=== PATIENT | male | born 1975 | race Two or more races ===

== ENCOUNTER 2016-10-20 13:28 | Emergency (ER) | payer OTHER ==
[~2016-10-20] VITALS: Ht 172.7 cm; Wt 94.8 kg
[2016-10-20 13:39] VITALS: BP 148/84
[2016-10-20 14:16] LABS: BILIRUBIN,URINE NEGATIVE (NEG); GLUCOSE,URINE NEGATIVE (NEG); NITRITE,URINE NEGATIVE (NEG); PH,URINE 7.5; PROTEIN,URINE NEGATIVE (NEG-TRACE); UROBILINOGEN,URINE 0.2 mg/dL (0.2 mg/dL)
[2016-10-20 14:39] LABS: BACTERIA,URINE 0 /HPF (0-FEW); RBC,URINE OCC /HPF (0-2); WBC,URINE 0 /HPF (0-4)
--- NOTE | 2016-10-20 15:26 | PHYS DOC ---
Past Medical History Past Medical History: No Pertinent History Past Surgical History: Other Additional Past Surgical Histo: LEFT SHOULDER ROTATOR CUFF REPAIR Alcohol Use: Occasionally Drug Use: Marijuana Adult General Chief Complaint Chief Complaint: ABDOMINAL PAIN HPI HPI Patient is a 41 year old male who presents with left groin pain for the past 3 or more weeks. He has a burning pain to his left inguinal area that sometimes shoots to his left testicle. States he was evaluated at [facility] for this prior and had a normal ultrasound. He was placed on NSAIDs. He has not followed up with anyone since that time, but has persistent symptoms. He denies nausea or vomiting, fever or chills, testicle swelling, scrotal swelling, constipation , diarrhea, dysuria, penile discharge, hematuria, back pain. He is taking ibuprofen or naproxen 1 time per day. Review of Systems Review of Systems Constitutional: Denies fever or chills [] Eyes: Denies change in visual acuity, redness, or eye pain [] HENT: Denies nasal congestion or sore throat [] Respiratory: Denies cough or shortness of breath [] Cardiovascular: No additional information not addressed in HPI [] GI: Denies abdominal pain, nausea, vomiting, bloody stools or diarrhea [] : Denies dysuria or hematuria [] Musculoskeletal: Denies back pain or joint pain [] Integument: Denies rash or skin lesions [] Neurologic: Denies headache, focal weakness or sensory changes [] Endocrine: Denies polyuria or polydipsia [] Current Medications Current Medications Current Medications Medications (Trade) Dose Ordered Sig/[facility] Start Time Stop Time Status Last Admin Dose Admin Naproxen (Naprosyn) 500 mg 1X ONCE 10/20/16 15:30 10/20/16 15:31 DC 10/20/16 15:33 500 MG Allergies Allergies Allergies Coded Allergies Type Severity Reaction Last Updated Verified No Known Drug Allergies 10/20/16 No Physical Exam Physical Exam Constitutional: Well developed, well nourished, no acute distress, non-toxic appearance. [] HENT: Normocephalic, atraumatic, bilateral external ears normal, oropharynx moist, nose normal. [] Eyes: PERRLA, EOMI. [] Neck: Normal range of motion, supple. [] Cardiovascular:Heart rate regular rhythm, no murmur [] Lungs & Thorax: Bilateral breath sounds clear to auscultation [] Abdomen: Bowel sounds normal, soft, no tenderness. [] Genitourinary: Normal external genitalia, no palpable inguinal hernia, normal palpable cord with appropriate tenderness, normal palpable bilateral testicles with appropriate tenderness, normal appearing scrotum, no palpable scrotal abnormalities Skin: Warm, dry, no erythema, no rash. [] Back: No tenderness, no CVA tenderness. [] Extremities: No tenderness, ROM intact, no edema. [] Neurologic: Alert and oriented X 3, normal motor function, normal sensory function, no focal deficits noted. [] Psychologic: Affect normal, judgement normal, mood normal. [] Current Patient Data Vital Signs Vital Signs Date Time Temp Pulse Resp B/P Pulse Ox O2 Delivery O2 Flow Rate FiO2 10/20/16 13:39 97.8 75 18 148/84 100 Room Air 97.8 Lab Values Laboratory Tests Test 10/20/16 13:30 Urine Collection Type Unknown Urine Color Yellow Urine Clarity Clear Urine pH 7.5 Urine Specific [place] 1.015 Urine Protein Negativemg/dL (NEG-TRACE) Urine Glucose (UA) Negativemg/dL (NEG) Urine Ketones (Stick) Negativemg/dL (NEG) Urine Blood Negative (NEG) Urine Nitrite Negative (NEG) Urine Bilirubin Negative (NEG) Urine Urobilinogen Dipstick 0.2mg/dL (0.2 mg/dL) Urine Leukocyte Esterase Negative (NEG) Urine RBC Occ/HPF (0-2) Urine WBC 0/HPF (0-4) Urine Bacteria 0/HPF (0-FEW) Urine Mucus Slight/LPF Course & Med Decision Making Course & Med Decision Making Pertinent Labs and Imaging studies reviewed. (See chart for details) Appears well on exam. Urine is unremarkable. Discussed possible etiologies of varicocele versus inguinal strain versus orchialgia versus other. Discussed use of NSAIDs and follow-up with primary care as well as urology clinic. Return precautions given. He understands and agrees with plan. Erik Disclaimer Erik Disclaimer This electronic medical record was generated, in whole or in part, using a voice recognition dictation system. Departure Departure Impression: Primary Impression: Left inguinal pain Disposition: HOME, SELF-CARE Condition: STABLE Patient Instructions: Inguinal Strain Additional Instructions: Take naproxen as needed for pain. Follow-up with your primary care doctor and urology clinic. Return for any concerns. Jonathan BROOKE MD Oct 20, 2016 15:26
[2016-10-20] MEDS ORDERED: NAPROXEN 500 MG TABLET PO ONE (15:30)
== END 2016-10-20 15:38 | disposition home or self-care (01) ==
LOC: ER 13:28
DX: R10.30 Lower abdominal pain, unspecified (principal); F12.10 Cannabis abuse, uncomplicated
CPT/HCPCS: 81001; 99283

== ENCOUNTER 2017-12-03 18:22 | Emergency (ER) | payer OTHER, MEDICARE ==
[2017-12-03 19:20] LABS: INFLUENZA A PATIENT NEGATIVE (NEGATIVE); INFLUENZA B PATIENT NEGATIVE (NEGATIVE); OBC FLU VALID
[2017-12-03] MEDS: DEXAMETHASONE SOD PHOS 20 MG/5 ML VIAL. IM (19:27)
[2017-12-03] MEDS: LIDOCAINE 2% VISCOUS 15 ML SOLUTION. SWSW (19:27)
[2017-12-03] MEDS: ACETAMINOPHEN 650 MG/20.3 ML SOLUTION. PO (19:27)
[2017-12-03] MEDS: IBUPROFEN 100 MG/5 ML ORAL.SUSP. PO (19:28)
[2017-12-03] MEDS: IV NORMAL SALINE 1000ML BAG 1,000 ML IV ×2 (19:45→20:19)
[2017-12-03 20:19] LABS: AGAP ISTAT 18 mmol/L (6-14); BUN ISTAT 11 mg/dL (8-26); CHLORIDE ISTAT 103 mmol/L (98-110); CREATININE ISTAT 0.9 mg/dL (0.5-1.4); GLUCOSE ISTAT 117 mg/dL (70-99); HEMATOCRIT ISTAT 49 % (37-52); HEMOGLOBIN ISTAT 16.7 g/dL (14-18); ION CA ISTAT 1.03 mmol/L (1.13-1.32); POTASSIUM ISTAT 3.4 mmol/L (3.5-5.0); SODIUM ISTAT 138 mmol/L (135-145); TOT CO2 ISTAT 21 mmol/L (23-32)
[2017-12-03 20:28] LABS: BASO % 0 % (0-3); EOS % 0 % (0-3); HEMATOCRIT 46.8 % (39.0-53.0); HEMOGLOBIN 16.2 g/dL (13.0-17.5); LYMPH % 5 % (24-48); MEAN CORPUSCULAR HEMOGLOBIN 33 pg (25-35); MEAN CORPUSCULAR HGB CONC 35 g/dL (31-37); MEAN CORPUSCULAR VOLUME 96 fL (79-100); MONO # 1.4 x10^3/uL (0.0-1.1); MONO % 7 % (0-9); NEUT # 18.5 x10^3uL (1.8-7.7); NEUT % 89 % (31-73); PLATELET COUNT 292 x10^3/uL (140-400); RED CELL DISTRIBUTION WIDTH 13.8 % (11.5-14.5); WHITE BLOOD COUNT 20.9 x10^3/uL (4.0-11.0)
[2017-12-03 20:29] LABS: ADD MAN DIFF? YES
[2017-12-03 20:43] LABS: ANION GAP 18 (6-14); BLOOD UREA NITROGEN 10 mg/dL (8-26); CALCIUM 9.2 mg/dL (8.5-10.1); CARBON DIOXIDE 20 mmol/L (21-32); CHLORIDE 100 mmol/L (98-107); GFR 81.2; GLUCOSE 115 mg/dL (70-99); POTASSIUM 3.4 mmol/L (3.5-5.1); SODIUM 138 mmol/L (136-145)
[2017-12-03 20:58] LABS: LACTIC ACID 1.8 mmol/L (0.4-2.0)
[2017-12-03 21:08] LABS: % LYMPHS 4 % (24-48); % MONOS 1 % (0-10); % SEGS 95 % (35-66)
[2017-12-03 21:09] LABS: PLT ESTIMATE ADEQUATE (ADEQUATE); STOMATOCYTES OCC
[2017-12-03 21:10] LABS: POLYCHROMASIA SLIGHT
[2017-12-03 21:21] LABS: PROCALCITONIN < 0.10 ng/mL (0.00-0.10)
[2017-12-03] MEDS ORDERED: CONTRAST GIVEN MC (21:30)
[2017-12-03] MEDS: IOHEXOL 300 MG/ML 100ML VIAL. IV (21:30)
[2017-12-03] MEDS: PIPERACILLIN/TAZOBACTAM 3.375 GM in IV NORMAL SALINE 50ML 50 ML IV (23:51)
[2017-12-04 05:59] LABS: NEGATIVE OBC STREP NEG; POSITIVE OBC STREP POS
== END 2017-12-04 00:37 | disposition short-term general hospital (02) ==
LOC: ER 12-04 00:37
DX: J04.30 Supraglottitis, unspecified, without obstruction (principal); R13.10 Dysphagia, unspecified; F12.10 Cannabis abuse, uncomplicated
CPT/HCPCS: 36415; 70360; 70491; 80047; 80048; 83605; 84145; 85007; 85025; 87040; 87070; 87804; 87804-59; 87880; 96361; 96365; 96372; 99285-25; J1100; J2543; J7030

== ENCOUNTER 2021-10-29 10:47 | Emergency (ER) | payer OTHER, MEDICAID ==
[~2021-10-29] VITALS: Ht 170.2 cm; Wt 88.3 kg
[2021-10-29] MEDS ORDERED: traMADol 50 MG TABLET PO ONE (11:30)
--- NOTE | 2021-10-29 12:04 | PHYS DOC ---
Past Medical History Past Medical History: Alcoholism, Vascular Disease (BELINDA SHAW) Past Surgical History: Other Additional Past Surgical Histo: left rotator cuff x2, carpal tunnel release, hernia repair (BELINDA SHAW) Smoking Status: Current Every Day Smoker Additional Information: 1 ppd Alcohol Use: Heavy Additional Information: drinks 24 beers daily Drug Use: Marijuana (BELINDA SHAW) General Adult EDM: Chief Complaint: FOOT INJURY PAIN HPI: HPI: Patient is a 46 year old male who presents with bilateral foot pain. Patient states that last night, his son and a friend were rough housing. When he attempted to separate the two, both of his feet got stepped on. He now reports severe right foot pain extending from the lateral ankle distally to all digits and mild distal left foot pain. Patient reports associated blue/purple color change and "tingling," but denies swelling, abrasion, laceration and puncture wounds. He is a PPD smoker, drinks 24 beers daily and has known history of peripheral vascular disease. Patient's last ultrasound did not reveal any lower extremity blockages. (BELINDA SHAW) Review of Systems: Review of Systems: ROS negative or noncontributory except as mentioned in HPI. (BELINDA SHAW) Heart Score: C/O Chest Pain: No (BELINDA SHAW) Current Medications: Current Medications Medications (Trade) Dose Ordered Sig/[facility] Start Time Stop Time Status Last Admin Dose Admin Tramadol HCl (Ultram) 50 mg 1X ONCE 10/29/21 11:30 10/29/21 11:41 DC (BELINDA SHAW) Allergies: Allergies: Allergies Coded Allergies Type Severity Reaction Last Updated Verified No Known Drug Allergies 10/20/16 No (BELINDA SHAW) Physical Exam: PE: Constitutional: Well developed, well nourished, no acute distress, patient appears older than stated age, disheveled. HENT: Normocephalic, atraumatic, bilateral external ears normal, nose normal. Eyes: EOMI, conjunctiva normal, no discharge. Neck: Normal range of motion, no stridor. Skin: Significant callus formation to the bilateral soles of the feet with varicose veins extending upward toward mid calf, bilateral distal feet symmetrically cool to touch. Skin otherwise warm, dry, no erythema, no rash. Extremities: Right upper extremity contracture, not new. Right strapping machine tender to gentle palpation from lateral ankle extending medially to midfoot and distally across all digits, DP/PT pulses 2+ and symmetrical, toes are purpleish in color (no significant change from baseline), no obvious deformity, no edema or swelling, pedal dorsiflexion and plantar flexion intact. Right calf with tenderness. Neurologic: Alert and oriented x4, no focal deficits noted. (BELINDA SHAW) Current Patient Data: Vital Signs: Vital Signs Date Time Temp Pulse Resp B/P (MAP) Pulse Ox O2 Delivery O2 Flow Rate FiO2 10/29/21 14:00 93 18 138/84 (102) 98 Room Air 10/29/21 11:49 16 10/29/21 11:10 98.1 104 20 135/94 (108) 98 Room Air 98.1 (BELINDA SHAW) Radiology/Procedures: Radiology/Procedures: PROCEDURE: FOOT RIGHT 3V EXAM: Right foot, 3 views. HISTORY: Blunt trauma. COMPARISON: None. FINDINGS: 3 views of the right foot are obtained. There is mild first metatarsal phalangeal joint spurring. There is no fracture, dislocation or subluxation. There is mild tibiotalar joint spurring. IMPRESSION: 1. 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 2. No acute osseous finding. Electronically signed by: Frida Nolan MD (10/29/2021 12:01 PM) [facility] (BELINDA HSAW) Course & Med Decision Making: Course & Med Decision Making Pertinent Labs and Imaging studies reviewed. (See chart for details) Patient is a 46-year-old male who presents with bilateral foot pain, right greater than left. It was stepped on by his adult states child. Patient does have history of peripheral vascular disease, but states that his feet appear to be darker. Distal pulses are symmetrical and sensation is intact. There does not appear to be any significant swelling or pallor. Plain films of right foot as well as venous US of RLE ordered. Tramadol provided for pain. (BELINDA SHAW) Course & Med Decision Making I saw and examined this patient myself. The patient had reported mild crush injury to his right foot. He reported calf pain and right foot pain. I examined him, he does have evidence of peripheral vascular disease. He does have a palpable dorsalis pedis pulse and posterior tibial pulse of the right foot. Right calf is tender. There is no evidence of pitting edema. Cap refill is approximately 2 seconds. Vascular exam is symmetric in bilateral lower extremities. The patient has a history of heavy tobacco use as well as alcohol use. He does not appear to be clinically intoxicated at this time. He is overall well-appearing. Imaging studies are unremarkable. Please see the PA note for further details of disposition. I concur with the plan of care. Smoking cessation encouraged. (ANITA CHRISTINE DO) Dragon Disclaimer: Dragelaine Disclaimer: This electronic medical record was generated, in whole or in part, using a voice recognition dictation system. (BELINDA SHAW) Departure Departure Impression: Primary Impression: Contusion of foot including toes Qualified Codes: S90.30XA - Contusion of unspecified foot, initial encounter; S90.129A - Contusion of unspecified lesser toe(s) without damage to nail, initial encounter Additional Impressions: Peripheral vascular disease Tobacco use Alcohol consumption heavy Disposition: HOME / SELF CARE / HOMELESS Condition: STABLE Referrals: NO PCP (PCP) AARON ALVAREZ ZHIPENG DPM Patient Instructions: Chronic Alcoholism, RICE - Routine Care for Injuries, [id number], Smoking Cessation, Tips For Success, Smoking, You Can Quit, [id number] Additional Instructions: EMERGENCY DEPARTMENT GENERAL DISCHARGE INSTRUCTIONS Thank you for coming to [facility] Emergency Department (ED) today and trusting us with you care. We trust that you had a positive experience in our Emergency Department. If you wish to speak to the department management, you may call the director at . YOUR FOLLOW UP INSTRUCTIONS ARE FOLLOWS: 1. Follow up with your primary care doctor. If you do not have a primary doctor, please ask for a resource list of physicians or clinics that may be able to assist you with follow up care. 2. The emergency provider has interpreted your imaging studies, if any were ordered. The radiology campaign management specialist also reviewed them. If there is a change in the findings, you will be notified in 48 hours when at all possible. 3. If a lab test or culture has been done, your results will be reviewed and you will be notified if you need a change in treatment. 4. Follow instructions verbalized to you and refer to the printouts if needed. ADDITIONAL INSTRUCTIONS AND INFORMATION: 1. Your care today has been supervised by a physician who is specially trained in emergency care. Many problems require more than one evaluation for a complete diagnosis and treatment. We recommend that you schedule your follow up appointment as recommended to ensure complete treatment of you illness or injury. If you are unable to obtain follow up care and continue to have a problem, or if your condition worsens, we recommend that you return to the ED. 2. We are not able to safely determine your condition over the phone nor are we able to give sound medical advice over the phone. For these safety reasons, if you call for medical advice we will ask you to come to the ED for further evaluation. 3. If you have any questions regarding these discharge instructions please call the ED at . SAFETY INFORMATION: In the interest of safety, wellness, and injury prevention; we encourage you to wear your seat belt, if you smoke; quite smoking, and we encourage family to use a protective helmet for bicycling and other sporting events that present an increased risk for head injury. IF YOUR SYMPTOMS WORSEN OR NEW SYMPTOMS DEVELOP, OR YOU HAVE CONCERNS ABOUT YOUR CONDITION; OR IF YOUR CONDITION WORSENS WHILE YOU ARE WAITING FOR YOUR FOLLOW UP APPOINTMENT; EITHER CONTACT YOUR PRIMARY CARE DOCTOR, THE PHYSICIAN WHOSE NAME AND NUMBER YOU WERE GIVEN, OR RETURN TO THE ED IMMEDIATELY. BELINDA SHAW Oct 29, 2021 12:04 ANITA CHRISTINE DO Oct 29, 2021 17:08
--- NOTE | 2021-10-29 13:12 | RAD ---
EXAM: Right lower extremity venous Doppler sonogram. HISTORY: Pain and swelling. TECHNIQUE: Mcallister scale and color Doppler sonographic evaluation of the right lower extremity veins wit h spectral waveform analysis was performed. FINDINGS: There is normal color flow, normal compressibility and there are normal spectral waveforms in the common femoral, superficial femoral, popliteal, posterior tibial and greater saphenous veins. IMPRESSION: No Doppler evidence of lower extremity deep venous thrombosis. Electronically signed by: Frida Nolan MD (10/29/2021 1:09 PM) [facility]
[2021-10-29 14:00] VITALS: BP 138/84
== END 2021-10-29 14:10 | disposition home or self-care (01) ==
LOC: ER 10:47
DX: S90.32XA Contusion of left foot, initial encounter (principal); S90.31XA Contusion of right foot, initial encounter; I73.9 Peripheral vascular disease, unspecified; Z72.0 Tobacco use; F10.20 Alcohol dependence, uncomplicated; Y90.9 Presence of alcohol in blood, level not specified; W22.8XXA Striking against or struck by other objects, initial encounter; Y93.89 Activity, other specified; Y92.89 Other specified places as the place of occurrence of the external cause; Y99.8 Other external cause status
CPT/HCPCS: 73630; 93971; 99284-25

== ENCOUNTER 2021-11-02 03:29 | Emergency (ER) | payer OTHER, MEDICAID ==
[~2021-11-02] VITALS: Ht 170.2 cm; Wt 85.4 kg
[2021-11-02 06:00] VITALS: BP 149/89
--- NOTE | 2021-11-02 06:34 | RAD ---
EXAM: Frontal chest with 3 view left rib series. HISTORY: Trauma, left rib pain. COMPARISON: None. FINDINGS: There are no confluent infiltrates. There is no pneumothorax or pleural effusion. The heart is not enlarged. The left distal clavicle has been partially resected. Left glenohumeral osteoarthritis is mild. Super ior subluxation of the humeral head indicates rotator cuff arthropathy. There are no displaced left r ib fractures. IMPRESSION: 1. No displaced left rib fractures. Electronically signed by: Katelyn Pack MD (11/02/2021 6:31 AM) [id number]
--- NOTE | 2021-11-02 06:54 | PHYS DOC ---
Past Medical History Past Medical History: Alcoholism, Vascular Disease Past Surgical History: Other Additional Past Surgical Histo: L ROTATOR CUFF X2, CARPEL TUNNEL, HERNIA REPAIR X2 Smoking Status: Unknown if ever smoked Alcohol Use: None Drug Use: Marijuana General Adult EDM: Chief Complaint: RIB PAIN HPI: HPI: 46 yo M who denies any PMH presents to the ed with c/o left sided rib pain stating he fell while drinking alcohol saturday night and was seen in the ED for right foot pain. States he wasn't having any rib pain immediately after falling. Reports he fell and landed forward on a wooden chair. Denies any loss consciousness. Reports daily alcohol use. Review of Systems: Review of Systems: Constitutional: Denies fever or chills. [] Eyes: Denies change in visual acuity. [] HENT: Denies nasal congestion or sore throat. [] Respiratory: Denies cough or shortness of breath or hemoptysis Cardiovascular: Denies chest pain or edema. [] GI: Denies abdominal pain, nausea, vomiting, bloody stools or diarrhea. [] : Denies incontinence or saddle anesthesia Musculoskeletal: Denies midline back pain or joint pain. [] Integument: Denies rash or diaphoresis Neurologic: Denies headache, focal weakness or sensory changes. [] Endocrine: Denies polyuria or polydipsia. [] Lymphatic: Denies swollen glands. [] Psychiatric: Denies depression or anxiety. [] Heart Score: C/O Chest Pain: No Risk Factors: Risk Factors: DM, Current or recent (<one month) smoker, HTN, HLP, family history of CAD, obesity. Risk Scores: Score 0 - 3: 2.5% MACE over next 6 weeks - Discharge Home Score 4 - 6: 20.3% MACE over next 6 weeks - Admit for Clinical Observation Score 7 - 10: 72.7% MACE over next 6 weeks - Early Invasive Strategies Allergies: Allergies: Allergies Coded Allergies Type Severity Reaction Last Updated Verified No Known Drug Allergies 11/02/21 No Physical Exam: PE: Constitutional: Well developed, well nourished, no acute distress, non-toxic appearance. HENT: Normocephalic, atraumatic, Eyes: EOMI, conjunctiva normal, no discharge. Neck: Normal range of motion, supple, Cardiovascular: S1/2 present, regular rhythm Lungs & Thorax: Speaking in full sentences, bilateral equal chest rise, no tachypnea or increased work of breathing, left thoracic 7-10 rib pain in midaxillary line, no flail chest - no external signs of trauma Abdomen: soft, no tenderness, no rigidity or guarding Skin: Warm, dry, no erythema, no rash. [] Back: No tenderness, no CVA tenderness. [] Extremities: No tenderness, no cyanosis, no lower extremity edema Neurologic: Alert and oriented X 3, normal motor function, normal sensory function, no focal deficits noted. [] Psychologic: Affect normal, judgement normal, mood normal. [] Current Patient Data: Vital Signs: Vital Signs Date Time Temp Pulse Resp B/P (MAP) Pulse Ox O2 Delivery O2 Flow Rate FiO2 11/02/21 04:29 98.0 88 16 176/91 (119) 99 Room Air 98.0 EKG: EKG: [] Radiology/Procedures: Radiology/Procedures: IMAGING REPORT Signed PATIENT: JARETH SKELTON ACCOUNT: [id number] : 1975 LOCATION: ER AGE: 46 SEX: M EXAM STATUS: REG ER ORD. PHYSICIAN: COLIN CALDERON DO REASON: left rib pain, s/p blunt trauma PROCEDURE: RIBS LEFT AND PA CHEST EXAM: Frontal chest with 3 view left rib series. HISTORY: Trauma, left rib pain. COMPARISON: None. FINDINGS: There are no confluent infiltrates. There is no pneumothorax or pleural effusion. The heart is not enlarged. The left distal clavicle has been partially resected. Left glenohumeral osteoarthritis is mild. Superior subluxation of the humeral head indicates rotator cuff arthropathy. There are no displaced left rib fractures. IMPRESSION: 1. No displaced left rib fractures. Electronically signed by: Katelyn Pack MD (11/02/2021 6:31 AM) [id number] DICTATED and SIGNED BY: RACHAEL PACK MD DATE: 11/02/21 [id number] Course & Med Decision Making: Course & Med Decision Making Pertinent Labs and Imaging studies reviewed. (See chart for details) Concern for left rib pain, suspect contusion. X-ray imaging not c/w fracture. Physical exam with no external signs of injury. Patient denies any chest pain, shortness of breath or abdominal pain. Will recommend [id number] analgesia and lidocaine patches. Due to patient's alcohol history we will also prescribe multivitamin folic acid. Will discharge home with strict ED return precautions were given for worsening pain, chest pain or shortness of breath. Encouraged urgent outpatient follow-up with PMD for routine care. Life-threaten ing processes were considered but are low suspicion at this time, given history, physical exam and ED workup. Pt was educated on all prescription medications and adverse effects. All patient's questions were answered and pt was stable at time of discharge. Life/limb-threatening differential includes but is not limited to, intracranial hemorrhage, diffuse axonal injury, spinal cord syndrome, unstable cervical fracture or SCIWORA, fractures or joint dislocations, neurovascular injuries, organ injury or laceration, pneumothorax, pneumoperitoneum, pericardial tamponade, unstable pelvic fracture, compartment syndrome, flail chest or re spiratory distress, burn injury or asphyxiation I have spoken with the patient and/or caregivers. I explained the patient's co ndition, diagnoses and treatment plan based on the information available to me at this time. I have answered the patient and/or caregiver's questions and addressed any concerns. The patient and/or caregivers have a good understanding of patient's diagnosis, condition and treatment plan as can be expected at this point. Vital signs have been stable. Patient's condition is stable and appropriate for discharge from the emergency department. Patient will pursue further outpatient evaluation with primary care physician or other designated or consulting physician as outlined in the discharge instructions. The patient and/or caregivers are agreeable to this plan of care and follow-up instructions have been explained in detail. The patient and/or caregivers have received these instructions in written form and have expressed an understanding of the discharge instructions. The patient and/or caregivers are aware that any significant change of condition or worsening of symptoms should prompt immediate return to this or the closest emergency department or call to 911. Erik Disclaimer: Erik Disclaimer: This electronic medical record was generated, in whole or in part, using a voice recognition dictation system. Departure Departure Impression: Primary Impression: Rib pain on left side Additional Impressions: Contusion of rib on left side Alcohol abuse Disposition: HOME / SELF CARE / HOMELESS Condition: STABLE Referrals: NO PCP (PCP) Follow-up with your primary care physician in 24 to 48 hours OR FOLLOW UP WITH FAMILY MEDICINE: [address], [address] [place] [address] Patient Instructions: Alcohol Problems, Rib Contusion Additional Instructions: EMERGENCY DEPARTMENT GENERAL DISCHARGE INSTRUCTIONS Thank you for coming to [facility] Emergency Department (ED) today and trusting us with you care. We trust that you had a positive experience in our Emergency Department. If you wish to speak to the department management, you may call the Director at [phone]. YOUR FOLLOW UP INSTRUCTIONS ARE FOLLOWS: 1. Do you have a private Doctor? If you do not have a private doctor, please ask for a resource list of physicians or clinics that may be able to assist you with follow up care. 2. The Emergency Physicain has interpreted your x-rays. The X-Ray specialist will also review them. If there is a change in the findings, you will be notified in 48 h ours when at all possible. 3. A lab test or culture has been done, your results will be reviewed and you will be notified if you need a change in treatment. ADDITIONAL INSTRUCTIONS AND INFORMATION: 1. Your care today has been supervised by a physician who is specially trained in emergency care. Many problems require more than one evaluation for a complete diagnosis and treatment. We recommend that you schedule your follow up appointment as recommended to ensure complete treatment of you illness or injury. If you are unable to obtain follow up care and continue to have a problem, or if your condition worsens, we recommend that you return to the ED. 2. We are not able to safely determine your condition over the phone nor are we able to give sound medical advice over the phone. For these safety reasons, if you call for medical advice we will ask you to come to the ED for further evaluation. 3. If you have any questions regarding these discharge instructions please call the ED at [phone]. SAFETY INFORMATION: In the interest of safety, wellness, and injury prevention; we encourage you to wear your sealbelt, if you smoke; quite smoking, and we encourage family to use a protective helmet for bicycling and other sporting events that present an increased risk for head injury. IF YOUR SYMPTOMS WORSEN OR NEW SYMPTOMS DEVELOP, OR YOU HAVE CONCERNS ABOUT YOUR CONDITION; OR IF YOUR CONDITION WORSENS WHILE YOU ARE WAITING FOR YOUR FOLLOW UP APPOINTMENT; EITHER CONTACT YOUR PRIMARY CARE DOCTOR, THE PHYSICIAN WHOSE NAME AND NUMBER YOU WERE GIVEN, OR RETURN TO THE ED IMMEDIATELY. Scripts Multivitamin With Folic Acid (ONE DAILY MULTIVITAMIN TABLET) 400 Mcg Tablet 1 TAB PO DAILY for 30 Days, #30 TAB 0 Refills Prov: COLIN CALDERON DO 11/02/21 Lidocaine (Lidocaine PATCH ) 1 Each Adh..patch 1 EACH TP DAILY for FOR LOCAL PAIN for 5 Days, #5 PATCH REMOVE AFTER 12 HOURS Prov: COLIN CALDERON DO 11/02/21 COLIN CALDERON DO Nov 02, 2021 06:54
[2021-11-02] MEDS ORDERED: LIDO700A21 TP (07:18)
[2021-11-02] MEDS ORDERED: MULT400T3 PO (07:23)
== END 2021-11-02 07:42 | disposition home or self-care (01) ==
LOC: ER 03:29
DX: S20.212A Contusion of left front wall of thorax, initial encounter (principal); M79.671 Pain in right foot; W18.39XA Other fall on same level, initial encounter; Y93.89 Activity, other specified; Y92.89 Other specified places as the place of occurrence of the external cause; Y99.8 Other external cause status
CPT/HCPCS: 71101; 99283

== ENCOUNTER 2021-12-08 13:32 | Inpatient (IN) | payer OTHER, MEDICAID ==
[~2021-12-08] VITALS: Ht 172.7 cm; Wt 90.3 kg
[~2021-12-08 13:32] MED LIST: LIDO700A21 TP; MULT400T3 PO
[2021-12-08 14:15] VITALS: BP 126/92
[2021-12-08] MEDS ORDERED: oxyCODONE/APAP 5/325 1 TAB TABLET PO PRN (16:00)
[2021-12-08] MEDS: IV NORMAL SALINE 1000ML BAG 1,000 ML IV SCH (16:33)
[2021-12-08] MEDS: oxyCODONE/APAP 5/325 1 TAB TABLET PO PRN ×2 (16:37→20:54)
[2021-12-08] MEDS: NICOTINE 14MG PATCH. TD SCH (16:39)
[2021-12-08] MEDS ORDERED: IV NORMAL SALINE 1000ML BAG 1,000 ML IV SCH (17:30)
[2021-12-08] MEDS ORDERED: PIP/TAZO PER PHARMACY MC PRN (17:30)
[2021-12-08] MEDS: PIPERACILLIN/TAZOBACTAM 3.375 GM in IV NORMAL SALINE 50ML 50 ML IV SCH (17:35)
--- NOTE | 2021-12-08 17:47 | HP ---
DATE OF SERVICE: 12/08/2021 ADMIT DATE: 12/08/2021 CHIEF COMPLAINT: Right foot toe lesions. HISTORY OF PRESENT ILLNESS: The patient is a pleasant 46-year-old male who has 3 of his 5 toes on the right that appeared to be gangrenous. He was told yesterday to go to the hospital as a direct admit. They called me from the wound care clinic. We accepted him as an admit, however, he did not show up, he went home. Suddenly today, he showed up. He has now been admitted to the medical floor where he has got 3 toes that are quite gangrenous. They are malodorous. I suspect he is going to need amputations. PAST MEDICAL HISTORY: Benign. ALLERGIES: None. FAMILY HISTORY: Diabetes. 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 He does not drink, smoke or take drugs. MEDICATIONS: He is on lidocaine patch and multiple vitamins. REVIEW OF SYSTEMS: GENERAL: No history of weight change, weakness or fevers. SKIN: No bruising, hair changes or rashes. EYES: No blurred, double or loss of vision. NOSE AND THROAT: No history of nosebleeds, hoarseness or sore throat. HEART: No history of palpitations, chest pain or shortness of breath on exertion. LUNGS: Denies cough, hemoptysis, wheezing or shortness of breath. GASTROINTESTINAL: Denies changes in appetite, nausea, vomiting, diarrhea or constipation. GENITOURINARY: No history of frequency, urgency, hesitancy or nocturia. NEUROLOGIC: Denies history of numbness, tingling, tremor or weakness. PSYCHIATRIC: No history of panic, anxiety or depression. ENDOCRINE: No history of heat or cold intolerance, polyuria or polydipsia. EXTREMITIES: He complains of right foot pain. PHYSICAL EXAMINATION: VITALS: Within normal limits and are stable. GENERAL: No apparent distress. Alert and oriented. HEENT: Normal cephalic atraumatic, external auditory canals are patent. Eyes: Extraocular muscles are intact, pupils are equally round and reactive to light and accommodation. MUSCULOSKELETAL: Well developed, well nourished, good range of motion. ENDOCRINE: No thyromegaly was palpated. LYMPHATICS: No cervical chain or axillary nodes were noted. HEMATOPOIETIC: No bruising. NECK: Supple, no JVD, no thyromegaly was noted. LUNGS: Clear to auscultation in all lung andrews without rhonchi or wheezing. HEART: RRR, S1, S2 present. Peripheral pulses intact, no obvious murmurs were noted. ABDOMEN: Soft, nontender. Positive bowel sounds, no organomegaly, normal bowel sounds. EXTREMITIES: The right foot has gangrenous toes, the last 3 toes are gangrenous, please see the pictures. NEUROLOGIC: Normal speech, normal tone. A and O x 3, moves all extremities, no obvious focal deficits. PSYCHIATRIC: Normal affect, normal mood. Stable. SKIN: No ulcerations or rashes, good skin turgor, no jaundice. VASCULAR: Good capillary refill, neurovascular bundle appears to be intact. LABORATORY DATA: Pending. ASSESSMENT AND PLAN: Severe peripheral vascular disease with gangrenous toes. The patient has been admitted. We will consult vascular surgeon. Empiric IV antibiotics, home meds. Deep venous thrombosis prophylaxis. Full code. P.r.n. Percocet, IV fluids. AURORA/MESFIN DR: Aaron TID: [id number]
[2021-12-08 19:00] VITALS: BP 105/67
[2021-12-08 19:12] LABS: BASO # 0.1 x10^3/uL (0.0-0.2); BASO % 1 % (0-3); EOS # 0.2 x10^3/uL (0.0-0.7); EOS % 3 % (0-3); HEMATOCRIT 38.1 % (39.0-53.0); HEMOGLOBIN 12.5 g/dL (13.0-17.5); LYMPH # 1.8 x10^3/uL (1.0-4.8); LYMPH % 28 % (24-48); MEAN CORPUSCULAR HEMOGLOBIN 32 pg (25-35); MEAN CORPUSCULAR HGB CONC 33 g/dL (31-37); MEAN CORPUSCULAR VOLUME 97 fL (79-100); MONO # 0.7 x10^3/uL (0.0-1.1); MONO % 10 % (0-9); NEUT # 3.7 x10^3/uL (1.8-7.7); NEUT % 57 % (31-73); PLATELET COUNT 313 x10^3/uL (140-400); RED BLOOD COUNT 3.94 x10^6/uL (4.30-5.70); RED CELL DISTRIBUTION WIDTH 14.1 % (11.5-14.5); WHITE BLOOD COUNT 6.4 x10^3/uL (4.0-11.0)
[2021-12-08 19:13] LABS: GFR 79.8; POTASSIUM 3.5 mmol/L (3.5-5.1)
[2021-12-08 23:00] VITALS: BP 131/81
[2021-12-09] MEDS: PIPERACILLIN/TAZOBACTAM 3.375 GM in IV NORMAL SALINE 50ML 50 ML IV SCH ×5 (01:16→23:25)
[2021-12-09] MEDS: oxyCODONE/APAP 5/325 1 TAB TABLET PO PRN ×6 (01:20→23:33)
[2021-12-09 03:00] VITALS: BP 123/80
[2021-12-09] MEDS: IV NORMAL SALINE 1000ML BAG 1,000 ML IV SCH ×2 (06:08→17:18)
[2021-12-09 07:00] VITALS: BP 120/84
[2021-12-09 08:47] LABS: BASO % 1 % (0-3); EOS # 0.2 x10^3/uL (0.0-0.7); EOS % 4 % (0-3); HEMATOCRIT 38.7 % (39.0-53.0); HEMOGLOBIN 12.7 g/dL (13.0-17.5); LYMPH # 1.9 x10^3/uL (1.0-4.8); LYMPH % 34 % (24-48); MEAN CORPUSCULAR HEMOGLOBIN 32 pg (25-35); MEAN CORPUSCULAR HGB CONC 33 g/dL (31-37); MEAN CORPUSCULAR VOLUME 96 fL (79-100); MONO # 0.5 x10^3/uL (0.0-1.1); MONO % 10 % (0-9); NEUT % 52 % (31-73); PLATELET COUNT 305 x10^3/uL (140-400); RED BLOOD COUNT 4.02 x10^6/uL (4.30-5.70); RED CELL DISTRIBUTION WIDTH 14.9 % (11.5-14.5); WHITE BLOOD COUNT 5.7 x10^3/uL (4.0-11.0)
[2021-12-09] MEDS: NICOTINE 14MG PATCH. TD SCH (09:35)
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
[2021-12-09] MEDS: ASPIRIN CHEWABLE 81 MG TABLET. PO SCH (10:30)
[2021-12-09 11:27] VITALS: BP 144/95
--- NOTE | 2021-12-09 13:25 | RAD ---
EXAM: Right lower extremity arterial Doppler sonogram. HISTORY: Gangrene. Peripheral vascular disease. TECHNIQUE: Mcallister scale and color Doppler sonographic imaging of the right lower extremity arteries wit h spectral waveform analysis was performed. COMPARISON: None. FINDINGS: There are abnormal monophasic waveforms within the right posterior tibial and dorsalis pedi s arteries. There is an elevated peak systolic velocity within the mid right superficial femoral tony ry. The remainder the peak systolic velocities are within normal limits. There is no arterial occlusi on. IMPRESSION: 1. Elevated peak systolic velocity within the right mid superficial femoral artery due to mild stenos is. 2. Monophasic waveforms within the posterior tibial and dorsalis pedis arteries, consistent with hemo dynamically significantly proximal stenosis. 3. No evidence of arterial occlusion. Electronically signed by: Frida Nolan MD (12/09/2021 1:22 PM) [id number]
[2021-12-09 15:24] VITALS: BP 146/92
--- NOTE | 2021-12-09 16:31 | RAD ---
EXAM: Right foot, 2 views. HISTORY: Right forefoot gangrene. COMPARISON: 10/29/2021 FINDINGS: 2 views of the right foot are obtained. There is first metatarsal phalangeal joint space na rrowing with degenerative spurring and subchondral cyst formation. There is no acute fracture, disloc ation or subluxation. There is no convincing radiographic evidence of osteomyelitis. There is mild ti biotalar joint spurring. IMPRESSION: 1. 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 2. No convincing radiographic evidence of osteomyelitis. Electronically signed by: Frida Nolan MD (12/09/2021 4:29 PM) [facility]
[2021-12-09 19:25] VITALS: BP 139/100
[2021-12-09] MEDS: ATORVASTATIN CALCIUM 40 MG TABLET. PO SCH (20:35)
[2021-12-09] MEDS: HEPARIN for SUB-Q USE 5,000 UNIT/ML VIAL. SQ SCH (22:30)
[2021-12-10 03:44] VITALS: BP 99/68
[2021-12-10] MEDS: PIPERACILLIN/TAZOBACTAM 3.375 GM in IV NORMAL SALINE 50ML 50 ML IV SCH ×4 (05:09→23:40)
[2021-12-10] MEDS: HEPARIN for SUB-Q USE 5,000 UNIT/ML VIAL. SQ SCH ×3 (05:12→22:00)
[2021-12-10] MEDS: oxyCODONE/APAP 5/325 1 TAB TABLET PO PRN ×5 (05:16→23:38)
[2021-12-10 06:57] LABS: BASO % 1 % (0-3); EOS # 0.2 x10^3/uL (0.0-0.7); EOS % 4 % (0-3); HEMATOCRIT 39.1 % (39.0-53.0); HEMOGLOBIN 12.7 g/dL (13.0-17.5); LYMPH # 1.9 x10^3/uL (1.0-4.8); LYMPH % 38 % (24-48); MEAN CORPUSCULAR HEMOGLOBIN 32 pg (25-35); MEAN CORPUSCULAR HGB CONC 33 g/dL (31-37); MEAN CORPUSCULAR VOLUME 97 fL (79-100); MONO # 0.5 x10^3/uL (0.0-1.1); MONO % 10 % (0-9); NEUT # 2.4 x10^3/uL (1.8-7.7); NEUT % 47 % (31-73); PLATELET COUNT 316 x10^3/uL (140-400); RED BLOOD COUNT 4.04 x10^6/uL (4.30-5.70); RED CELL DISTRIBUTION WIDTH 14.3 % (11.5-14.5); WHITE BLOOD COUNT 5.1 x10^3/uL (4.0-11.0)
[2021-12-10 07:00] VITALS: BP 124/80
[2021-12-10] MEDS: NICOTINE 14MG PATCH. TD SCH (09:13)
[2021-12-10] MEDS: ASPIRIN CHEWABLE 81 MG TABLET. PO SCH (09:13)
[2021-12-10] MEDS: IV NORMAL SALINE 1000ML BAG 1,000 ML IV SCH (09:14)
[2021-12-10 11:00] VITALS: BP 130/81
[2021-12-10 14:52] VITALS: BP 138/91
[2021-12-10] MEDS: MORPHINE SULFATE 2 MG/ML INJ. IVP PRN ×2 (16:12→20:05)
--- NOTE | 2021-12-10 17:49 | PDOC ---
[facility] PROGRESS NOTE Date of Service DOS: Late entry from December 09 Chief Complaint Chief Complaint Severe peripheral vascular disease with gangrenous toes. The patient has been admitted. We will consult vascular surgeon. Empiric IV antibiotics, home meds. Deep venous thrombosis prophylaxis. Full code. P.r.n. Percocet, IV fluids. History of Present Illness History of Present Illness 12/09 Evaluate examined at bedside. Pain controlled. Interested in plan. Continue antibiotics. Vascular surgery consulted. Possible surgery this coming week Vitals/I&O Vitals/I&O: Vital Signs Date Time Temp Pulse Resp B/P (MAP) Pulse Ox O2 Delivery O2 Flow Rate FiO2 12/10/21 17:25 16 97 Room Air 12/10/21 14:52 97.9 73 138/91 (107) 97.9 I & O 12/09/21 12/09/21 12/10/21 15:00 23:00 07:00 Intake Total 480 ml Output Total 700 ml Balance -220 ml Physical Exam General: Alert, Oriented X3, No acute distress Heart: Regular rate Lungs: Clear Abdomen: Normal bowel sounds, Soft, No tenderness, No masses Extremities: Other (dry gangrene to right 3-5th digits with gangrene to the plantar aspect of the right great toe and lateral aspect of the right 2nd toe, malodorous, no drainage, no surrounding erythema, no fluctuance, palpable femoral/popliteal/DP/PT pulses b/l) Skin: Other (See extremity exam) Labs Labs: Laboratory Tests Test 12/10/21 05:55 12/10/21 12:46 White Blood Count 5.1 x10^3/uL (4.0-11.0) Red Blood Count 4.04 x10^6/uL (4.30-5.70) Hemoglobin 12.7 g/dL (13.0-17.5) Hematocrit 39.1 % (39.0-53.0) Mean Corpuscular Volume 97 fL (79-100) Mean Corpuscular Hemoglobin 32 pg (25-35) Mean Corpuscular Hemoglobin Concent 33 g/dL (31-37) Red Cell Distribution Width 14.3 % (11.5-14.5) Platelet Count 316 x10^3/uL (140-400) Neutrophils (%) (Auto) 47 % (31-73) Lymphocytes (%) (Auto) 38 % (24-48) Monocytes (%) (Auto) 10 % (0-9) Eosinophils (%) (Auto) 4 % (0-3) Basophils (%) (Auto) 1 % (0-3) Neutrophils # (Auto) 2.4 x10^3/uL (1.8-7.7) Lymphocytes # (Auto) 1.9 x10^3/uL (1.0-4.8) Monocytes # (Auto) 0.5 x10^3/uL (0.0-1.1) Eosinophils # (Auto) 0.2 x10^3/uL (0.0-0.7) Basophils # (Auto) 0.0 x10^3/uL (0.0-0.2) SARS-CoV-2 Antigen (Rapid) Negative (NEGATIVE) Comment Review of Relevant I have reviewed the following items brandi (where applicable) has been applied. Medications: Current Medications Medications (Trade) Dose Ordered Sig/Abdullahi Route PRN Reason Start Time Stop Time Status Last Admin Dose Admin Atorvastatin Calcium (Lipitor) 40 mg QHS PO 12/09/21 21:00 12/09/21 20:35 Heparin Sodium (Porcine) (Heparin Sodium) 5,000 unit Q8HRS SQ 12/09/21 22:00 12/10/21 14:00 Morphine Sulfate (Morphine Sulfate) 2 mg PRN Q2HR PRN IVP PAIN 12/10/21 16:00 12/10/21 16:12 Justifications for Admission Other Justification JALYN LAU MD Dec 10, 2021 17:49
--- NOTE | 2021-12-10 17:50 | PDOC ---
[facility] PROGRESS NOTE Date of Service DOS: DATE: 12/10/21 TIME: 17:49 Chief Complaint Chief Complaint Severe peripheral vascular disease with gangrenous toes. The patient has been admitted. We will consult vascular surgeon. Empiric IV antibiotics, home meds. Deep venous thrombosis prophylaxis. Full code. P.r.n. Percocet, IV fluids. History of Present Illness History of Present Illness 12/09 Evaluate examined at bedside. Pain controlled. Interested in plan. Continue antibiotics. Vascular surgery consulted. Possible surgery this coming week 12/10 Evaluated examined at bedside. Patient resting in bed. Planning for surgical intervention tomorrow. Please send cultures if possible. We will see patient again in the morning before surgery. N.p.o. midnight Vitals/I&O Vitals/I&O: Vital Signs Date Time Temp Pulse Resp B/P (MAP) Pulse Ox O2 Delivery O2 Flow Rate FiO2 12/10/21 17:25 16 97 Room Air 12/10/21 14:52 97.9 73 138/91 (107) 97.9 I & O 12/09/21 12/09/21 12/10/21 15:00 23:00 07:00 Intake Total 480 ml Output Total 700 ml Balance -220 ml Physical Exam General: Alert, Oriented X3, No acute distress Heart: Regular rate Lungs: Clear Abdomen: Normal bowel sounds, Soft, No tenderness, No masses Extremities: Other (dry gangrene to right 3-5th digits with gangrene to the plantar aspect of the right great toe and lateral aspect of the right 2nd toe, malodorous, no drainage, no surrounding erythema, no fluctuance, palpable femoral/popliteal/DP/PT pulses b/l) Skin: Other (See extremity exam) Labs Labs: Laboratory Tests Test 12/10/21 05:55 12/10/21 12:46 White Blood Count 5.1 x10^3/uL (4.0-11.0) Red Blood Count 4.04 x10^6/uL (4.30-5.70) Hemoglobin 12.7 g/dL (13.0-17.5) Hematocrit 39.1 % (39.0-53.0) Mean Corpuscular Volume 97 fL (79-100) Mean Corpuscular Hemoglobin 32 pg (25-35) Mean Corpuscular Hemoglobin Concent 33 g/dL (31-37) Red Cell Distribution Width 14.3 % (11.5-14.5) Platelet Count 316 x10^3/uL (140-400) Neutrophils (%) (Auto) 47 % (31-73) Lymphocytes (%) (Auto) 38 % (24-48) Monocytes (%) (Auto) 10 % (0-9) Eosinophils (%) (Auto) 4 % (0-3) Basophils (%) (Auto) 1 % (0-3) Neutrophils # (Auto) 2.4 x10^3/uL (1.8-7.7) Lymphocytes # (Auto) 1.9 x10^3/uL (1.0-4.8) Monocytes # (Auto) 0.5 x10^3/uL (0.0-1.1) Eosinophils # (Auto) 0.2 x10^3/uL (0.0-0.7) Basophils # (Auto) 0.0 x10^3/uL (0.0-0.2) SARS-CoV-2 Antigen (Rapid) Negative (NEGATIVE) Comment Review of Relevant I have reviewed the following items brandi (where applicable) has been applied. Medications: Current Medications Medications (Trade) Dose Ordered Sig/Abdullahi Route PRN Reason Start Time Stop Time Status Last Admin Dose Admin Atorvastatin Calcium (Lipitor) 40 mg QHS PO 12/09/21 21:00 12/09/21 20:35 Heparin Sodium (Porcine) (Heparin Sodium) 5,000 unit Q8HRS SQ 12/09/21 22:00 12/10/21 14:00 Morphine Sulfate (Morphine Sulfate) 2 mg PRN Q2HR PRN IVP PAIN 12/10/21 16:00 12/10/21 16:12 Justifications for Admission Other Justification JALYN LAU MD Dec 10, 2021 17:50
[2021-12-10 19:25] VITALS: BP 131/86
[2021-12-10] MEDS: LACTOBACILLUS RHAMNOSUS GG 1 CAPSULE. PO SCH (20:04)
[2021-12-10] MEDS: ATORVASTATIN CALCIUM 40 MG TABLET. PO SCH (20:04)
[2021-12-10 23:16] VITALS: BP 116/72
[2021-12-11] VITALS (12 sets, daily range): BP systolic 112–146; BP diastolic 66–95
[2021-12-11] MEDS: IV NORMAL SALINE 1000ML BAG 1,000 ML IV SCH ×3 (01:15→20:14)
[2021-12-11 04:45] LABS: BASO # 0.1 x10^3/uL (0.0-0.2); BASO % 1 % (0-3); EOS # 0.2 x10^3/uL (0.0-0.7); EOS % 4 % (0-3); HEMATOCRIT 36.9 % (39.0-53.0); HEMOGLOBIN 12.2 g/dL (13.0-17.5); LYMPH # 1.5 x10^3/uL (1.0-4.8); LYMPH % 35 % (24-48); MEAN CORPUSCULAR HEMOGLOBIN 32 pg (25-35); MEAN CORPUSCULAR HGB CONC 33 g/dL (31-37); MEAN CORPUSCULAR VOLUME 97 fL (79-100); MONO # 0.4 x10^3/uL (0.0-1.1); MONO % 10 % (0-9); NEUT # 2.1 x10^3/uL (1.8-7.7); NEUT % 49 % (31-73); PLATELET COUNT 285 x10^3/uL (140-400); RED BLOOD COUNT 3.82 x10^6/uL (4.30-5.70); RED CELL DISTRIBUTION WIDTH 14.6 % (11.5-14.5); WHITE BLOOD COUNT 4.3 x10^3/uL (4.0-11.0)
[2021-12-11] MEDS: HEPARIN for SUB-Q USE 5,000 UNIT/ML VIAL. SQ SCH ×3 (05:47→21:56)
[2021-12-11] MEDS: PIPERACILLIN/TAZOBACTAM 3.375 GM in IV NORMAL SALINE 50ML 50 ML IV SCH ×3 (05:59→17:15)
[2021-12-11] MEDS ORDERED: LIDOCAINE 2% 100 MG/5 ML SYRINGE. ONE ×2 (07:35→07:49)
[2021-12-11] MEDS ORDERED: LIDOCAINE 2% PF 5 ML VIAL. ONE (07:35)
--- NOTE | 2021-12-11 07:36 | PDOC ---
Provider Note Date of Service: DATE: 12/11/21 TIME: 07:33 Provider Note Provider Note Patient seen and examined in the preoperative area. He has gangrene of the right third through fifth digits that covers nearly the entire digit. He has partial gangrene of the plantar aspect of the right great toe and on the lateral aspect of the second toe. We will plan for amputation of the right third through fifth digits, with debridement of the right first and second digit and possible amputation of the right first and second digit. He has a palpable pulse at the DP and PT bilaterally. Risks, including the risk of bleeding, infection, delayed wound healing, need for further amputation, cardiopulmonary compromise, and were discussed in detail with the patient who understood and wished to proceed with surgery. Informed consent was obtained. Justicifation of Admission Dx: Justifications for Admission: Justification of Admission Dx: ESTEFANIA Mccann DO Dec 11, 2021 07:36
[2021-12-11] MEDS ORDERED: fentaNYL PF VIAL 100 MCG/2 ML VIAL ONE ×2 (07:48→09:25)
[2021-12-11] MEDS ORDERED: MIDAZOLAM HCL/PF 2 MG/2 ML VIAL. ONE (07:48)
[2021-12-11] MEDS: fentaNYL PF VIAL 100 MCG/2 ML VIAL IVP PRN ×4 (07:55→09:33)
[2021-12-11] MEDS ORDERED: PROCHLORPERAZINE 10 MG/2 ML VIAL. IVP PRN ×2 (08:15→10:45)
[2021-12-11] MEDS ORDERED: MIDAZOLAM HCL/PF 2 MG/2 ML VIAL. IV ONE (08:15)
[2021-12-11] MEDS ORDERED: IV RINGERS,LACTATED 1000ML 1,000 ML IV SCH ×2 (08:15→10:45)
[2021-12-11] MEDS ORDERED: MORPHINE SULFATE 2 MG/ML INJ. IVP PRN ×2 (08:15→10:45)
[2021-12-11] MEDS ORDERED: fentaNYL PF VIAL 100 MCG/2 ML VIAL IVP PRN ×3 (08:15→10:45)
[2021-12-11] MEDS ORDERED: LIDOCAINE 1% Multi-Dose 20 ML VIAL. ONE (08:31)
[2021-12-11] MEDS ORDERED: PROCHLORPERAZINE 10 MG/2 ML VIAL. ONE (09:25)
--- NOTE | 2021-12-11 09:25 | PDOC4 ---
Operative Note Operative Note Date of procedure: 12/11/2021 Preoperative diagnosis: Right foot first through fifth toe gangrene Postoperative diagnosis: Same Procedure: Right third through fifth toe amputation Right first and second toe debridement 0.5 x 0.5 cm Anesthesia: MAC local Primary surgeon: Karime Garvin DO Computing Consultant: None Specimens removed: Right third through fifth toe for disposal Estimated blood loss: 50 cc Indications: Mr. Ray is a 46-year-old male who had trauma to the right foot which subsequently developed forefoot gangrene. He presents today for amputation of the third through fifth toes and debridement with possible amputation of the first and f second toes on the right foot. Risk-benefit and alternatives to operative intervention were discussed in detail with the patient who understood and wished proceed with surgery. Informed consent was obtained. Description of procedure: After informed consent was obtained the patient was brought to the operating room placed in supine position on the table. Monitored anesthesia care was induced. A timeout was performed confirmed the correct patient positioning procedure allergies and antibiotics. The patient was prepped and draped in usual sterile fashion with the right lower extremity exposed. Sharp excisional debridement of the skin was undertaken of the right first and second toe. This was debrided to an area of 0.5 x 0.5 cm. I then focused on the third through fifth toe as the first and second toe had viable tissue underlying. The third through fifth toes were incised with a scalpel and the tissue was mobilized on the phalanges. The phalanges were divided with a bone cutter and were passed off the field for disposal. I then mobilized the tissue more proximally and divided any tendon sharply. A rongeur was used to take the bone back further. The wound was then thoroughly irrigated and hemostasis was achieved. The wound was then closed utilizing a 3-0 Vicryl in a running fashion and 3-0 nylon in a running fashion on the skin. The patient tolerated the procedure well was transferred to recovery area in stable condition. All sponge and needle counts reported as correct at the end the case. I was present scrubbed throughout the duration of the procedure. DO JONNA Beebe KARA M DO Dec 11, 2021 09:25
[2021-12-11] MEDS ORDERED: NALOXONE 0.4 MG/ML VIAL. IV PRN (09:30)
[2021-12-11] MEDS ORDERED: HYDROmorphone 2 MG/ML INJ. ONE (09:30)
[2021-12-11] MEDS ORDERED: 0.9 % SODIUM CHLORIDE 10 ML DISP.SYRIN. IV PRN (09:30)
[2021-12-11] MEDS: HYDROmorphone 2 MG/ML INJ. IVP PRN ×4 (09:43→10:17)
--- NOTE | 2021-12-11 10:06 | NUR ---
SW following. Discussed with RN, pt from home with family, room air, NPO, rapid COVID-19 negative. Pt having surgery today. RN advised no SW needs at this time. SW will continue to follow.
[2021-12-11] MEDS ORDERED: HYDROmorphone 2 MG/ML INJ. IVP PRN (10:45)
[2021-12-11] MEDS: oxyCODONE/APAP 5/325 1 TAB TABLET PO PRN ×3 (11:16→21:51)
[2021-12-11] MEDS: LACTOBACILLUS RHAMNOSUS GG 1 CAPSULE. PO SCH ×2 (11:31→20:12)
[2021-12-11] MEDS: ASPIRIN CHEWABLE 81 MG TABLET. PO SCH (11:31)
[2021-12-11] MEDS: NICOTINE 14MG PATCH. TD SCH (11:32)
[2021-12-11] MEDS: MORPHINE SULFATE 2 MG/ML INJ. IVP PRN ×2 (14:19→20:10)
[2021-12-11] MEDS: MULTIVITAMIN with MINERAL TABLET. PO SCH (17:13)
--- NOTE | 2021-12-11 19:49 | PDOC ---
[employer] PROGRESS NOTE Date of Service DOS: DATE: 12/11/21 TIME: 19:48 Chief Complaint Chief Complaint Severe peripheral vascular disease with gangrenous toes. The patient has been admitted. We will consult vascular surgeon. Empiric IV antibiotics, home meds. Deep venous thrombosis prophylaxis. Full code. P.r.n. Percocet, IV fluids. History of Present Illness History of Present Illness 12/09 Evaluate examined at bedside. Pain controlled. Interested in plan. Continue antibiotics. Vascular surgery consulted. Possible surgery this coming week 12/10 Evaluated examined at bedside. Patient resting in bed. Planning for surgical intervention tomorrow. Please send cultures if possible. We will see patient again in the morning before surgery. N.p.o. midnight 12/11 Patient evaluated examined at bedside H before and after surgery. After surgery she was bit lethargic. Pain was well controlled. Continue current plan. Vascular following. Continue antibiotics. discussed with bedside RN. Vitals/I&O Vitals/I&O: Vital Signs Date Time Temp Pulse Resp B/P (MAP) Pulse Ox O2 Delivery O2 Flow Rate FiO2 12/11/21 17:14 20 94 Room Air 12/11/21 15:00 82 142/75 (97) 12/11/21 10:45 97.8 97.8 12/11/21 09:33 10.0 I & O 12/10/21 12/10/21 12/11/21 15:00 23:00 07:00 Intake Total 180 ml 180 ml Output Total 200 ml 250 ml Balance -20 ml 180 ml -250 ml Physical Exam General: Alert, Oriented X3, No acute distress Heart: Regular rate Lungs: Clear Abdomen: Normal bowel sounds, Soft, No tenderness, No masses Extremities: Other (dry gangrene to right 3-5th digits with gangrene to the plantar aspect of the right great toe and lateral aspect of the right 2nd toe, malodorous, no drainage, no surrounding erythema, no fluctuance, palpable femoral/popliteal/DP/PT pulses b/l) Skin: Other (See extremity exam) Labs Labs: Laboratory Tests Test 12/11/21 04:00 White Blood Count 4.3 x10^3/uL (4.0-11.0) Red Blood Count 3.82 x10^6/uL (4.30-5.70) Hemoglobin 12.2 g/dL (13.0-17.5) Hematocrit 36.9 % (39.0-53.0) Mean Corpuscular Volume 97 fL (79-100) Mean Corpuscular Hemoglobin 32 pg (25-35) Mean Corpuscular Hemoglobin Concent 33 g/dL (31-37) Red Cell Distribution Width 14.6 % (11.5-14.5) Platelet Count 285 x10^3/uL (140-400) Neutrophils (%) (Auto) 49 % (31-73) Lymphocytes (%) (Auto) 35 % (24-48) Monocytes (%) (Auto) 10 % (0-9) Eosinophils (%) (Auto) 4 % (0-3) Basophils (%) (Auto) 1 % (0-3) Neutrophils # (Auto) 2.1 x10^3/uL (1.8-7.7) Lymphocytes # (Auto) 1.5 x10^3/uL (1.0-4.8) Monocytes # (Auto) 0.4 x10^3/uL (0.0-1.1) Eosinophils # (Auto) 0.2 x10^3/uL (0.0-0.7) Basophils # (Auto) 0.1 x10^3/uL (0.0-0.2) Comment Review of Relevant I have reviewed the following items brandi (where applicable) has been applied. Medications: Current Medications Medications (Trade) Dose Ordered Sig/Abdullahi Route PRN Reason Start Time Stop Time Status Last Admin Dose Admin Lactobacillus Rhamnosus (Culturelle) 1 cap BID PO 12/10/21 21:00 12/11/21 11:31 Cefazolin Sodium 1 gm/Sodium Chloride 250 ml @ 250 mls/hr 1X ONCE IRR 12/11/21 08:00 12/11/21 08:59 DC 12/11/21 08:23 Fentanyl Citrate (Fentanyl 2ml Vial) 50 mcg PRN Q5MIN PRN IVP MODERATE PAIN 4-6 12/11/21 08:15 12/11/21 20:00 12/11/21 09:33 Ringer's Solution 1,000 ml @ 30 mls/hr Q24H IV 12/11/21 08:15 12/11/21 20:14 12/11/21 08:12 Hydromorphone HCl (Dilaudid) 0.5 mg PRN Q10MIN PRN IVP SEVERE PAIN 7-10, 2nd CHOICE 12/11/21 08:15 12/11/21 20:00 12/11/21 10:17 Prochlorperazine Edisylate (Compazine) 5 mg PACU PRN PRN IVP NAUSEA, MRX1 12/11/21 08:15 12/11/21 20:00 12/11/21 09:27 Midazolam HCl (Versed) 2 mg 1X ONCE IV 12/11/21 08:15 12/11/21 08:16 DC 12/11/21 07:55 Lidocaine HCl (Lidocaine 1% 20ml Vial) 20 ml STK-MED ONCE .ROUTE 12/11/21 08:31 12/11/21 08:32 DC 12/11/21 08:43 Multivitamins (Thera M Plus) 1 tab DAILY PO 12/11/21 17:00 12/11/21 17:13 Justifications for Admission Other Justification JALYN LAU MD Dec 11, 2021 19:49
[2021-12-11] MEDS: ATORVASTATIN CALCIUM 40 MG TABLET. PO SCH (20:12)
[2021-12-12] MEDS: PIPERACILLIN/TAZOBACTAM 3.375 GM in IV NORMAL SALINE 50ML 50 ML IV SCH ×4 (00:11→17:10)
[2021-12-12] MEDS: MORPHINE SULFATE 2 MG/ML INJ. IVP PRN ×5 (00:19→22:00)
[2021-12-12] MEDS: oxyCODONE/APAP 5/325 1 TAB TABLET PO PRN ×4 (02:51→20:04)
[2021-12-12 03:00] VITALS: BP 132/84
[2021-12-12] MEDS: HEPARIN for SUB-Q USE 5,000 UNIT/ML VIAL. SQ SCH ×3 (06:05→22:05)
[2021-12-12 07:08] LABS: BASO % 0 % (0-3); EOS # 0.1 x10^3/uL (0.0-0.7); EOS % 2 % (0-3); LYMPH # 1.4 x10^3/uL (1.0-4.8); LYMPH % 25 % (24-48); MEAN CORPUSCULAR HEMOGLOBIN 32 pg (25-35); MEAN CORPUSCULAR HGB CONC 33 g/dL (31-37); MEAN CORPUSCULAR VOLUME 96 fL (79-100); MONO # 0.5 x10^3/uL (0.0-1.1); MONO % 10 % (0-9); NEUT # 3.4 x10^3/uL (1.8-7.7); NEUT % 63 % (31-73); PLATELET COUNT 287 x10^3/uL (140-400); RED BLOOD COUNT 3.75 x10^6/uL (4.30-5.70); RED CELL DISTRIBUTION WIDTH 14.2 % (11.5-14.5); WHITE BLOOD COUNT 5.5 x10^3/uL (4.0-11.0)
[2021-12-12 07:15] VITALS: BP 132/84
[2021-12-12] MEDS: NICOTINE 14MG PATCH. TD SCH (08:24)
[2021-12-12] MEDS: MULTIVITAMIN with MINERAL TABLET. PO SCH (08:24)
[2021-12-12] MEDS: ASPIRIN CHEWABLE 81 MG TABLET. PO SCH (08:24)
[2021-12-12] MEDS: LACTOBACILLUS RHAMNOSUS GG 1 CAPSULE. PO SCH ×2 (08:24→22:01)
[2021-12-12] MEDS: IV NORMAL SALINE 1000ML BAG 1,000 ML IV SCH (08:49)
--- NOTE | 2021-12-12 10:42 | PDOC ---
PROGRESS NOTES Date of Service DATE: 12/12/21 TIME: 10:38 Subjective Subjective Endorses pain in right foot. No acute events postoperatively. vitals stable Objective Objective Vital Signs Date Time Temp Pulse Resp B/P (MAP) Pulse Ox O2 Delivery O2 Flow Rate FiO2 12/12/21 09:26 97 Room Air 10.0 12/12/21 07:19 20 12/12/21 07:15 97.9 68 132/84 (100) 97.9 Intake and Output 12/12/21 07:00 Intake Total 1440 ml Output Total 3151 ml Balance -1711 ml Intake Oral 440 ml IV Total 1000 ml Output Urine Total 3100 ml Stool Total 1 ml Estimated Blood Loss 50 ml # Voids 1 Physical Exam Heart: Other (2+ palpable dp pulse on right.) Skin: Other (Right foot amputation site c/d/i with sutures in place without hematoma. Small superficial ulceration right second toe. No other visualized wounds on right foot.) Assessment Assessment POD 1 right 3-5th toe amps and debridement of second toe ulceration on right Recommend half shoe for forefoot offloading on right for ambulation from p hysical therapy Recommend PT evaluation in shoe if able to ambulate then may discharge Bandaid with antibiotic ointment to second toe ulceration Dry dressing to cover suture on right foot Ok to ambulate with non weight bearing to right forefoot. Comment Review of Relevant I have reviewed the following items brandi (where applicable) has been applied. Labs Laboratory Tests Test 12/10/21 12:46 12/11/21 04:00 12/12/21 05:27 SARS-CoV-2 Antigen (Rapid) Negative (NEGATIVE) White Blood Count 4.3 x10^3/uL (4.0-11.0) 5.5 x10^3/uL (4.0-11.0) Red Blood Count 3.82 x10^6/uL (4.30-5.70) 3.75 x10^6/uL (4.30-5.70) Hemoglobin 12.2 g/dL (13.0-17.5) 12.0 g/dL (13.0-17.5) Hematocrit 36.9 % (39.0-53.0) 36.0 % (39.0-53.0) Mean Corpuscular Volume 97 fL (79-100) 96 fL (79-100) Mean Corpuscular Hemoglobin 32 pg (25-35) 32 pg (25-35) Mean Corpuscular Hemoglobin Concent 33 g/dL (31-37) 33 g/dL (31-37) Red Cell Distribution Width 14.6 % (11.5-14.5) 14.2 % (11.5-14.5) Platelet Count 285 x10^3/uL (140-400) 287 x10^3/uL (140-400) Neutrophils (%) (Auto) 49 % (31-73) 63 % (31-73) Lymphocytes (%) (Auto) 35 % (24-48) 25 % (24-48) Monocytes (%) (Auto) 10 % (0-9) 10 % (0-9) Eosinophils (%) (Auto) 4 % (0-3) 2 % (0-3) Basophils (%) (Auto) 1 % (0-3) 0 % (0-3) Neutrophils # (Auto) 2.1 x10^3/uL (1.8-7.7) 3.4 x10^3/uL (1.8-7.7) Lymphocytes # (Auto) 1.5 x10^3/uL (1.0-4.8) 1.4 x10^3/uL (1.0-4.8) Monocytes # (Auto) 0.4 x10^3/uL (0.0-1.1) 0.5 x10^3/uL (0.0-1.1) Eosinophils # (Auto) 0.2 x10^3/uL (0.0-0.7) 0.1 x10^3/uL (0.0-0.7) Basophils # (Auto) 0.1 x10^3/uL (0.0-0.2) 0.0 x10^3/uL (0.0-0.2) Laboratory Tests Test 12/12/21 05:27 White Blood Count 5.5 x10^3/uL (4.0-11.0) Red Blood Count 3.75 x10^6/uL (4.30-5.70) Hemoglobin 12.0 g/dL (13.0-17.5) Hematocrit 36.0 % (39.0-53.0) Mean Corpuscular Volume 96 fL (79-100) Mean Corpuscular Hemoglobin 32 pg (25-35) Mean Corpuscular Hemoglobin Concent 33 g/dL (31-37) Red Cell Distribution Width 14.2 % (11.5-14.5) Platelet Count 287 x10^3/uL (140-400) Neutrophils (%) (Auto) 63 % (31-73) Lymphocytes (%) (Auto) 25 % (24-48) Monocytes (%) (Auto) 10 % (0-9) Eosinophils (%) (Auto) 2 % (0-3) Basophils (%) (Auto) 0 % (0-3) Neutrophils # (Auto) 3.4 x10^3/uL (1.8-7.7) Lymphocytes # (Auto) 1.4 x10^3/uL (1.0-4.8) Monocytes # (Auto) 0.5 x10^3/uL (0.0-1.1) Eosinophils # (Auto) 0.1 x10^3/uL (0.0-0.7) Basophils # (Auto) 0.0 x10^3/uL (0.0-0.2) Medications Current Medications Oxycodone/ Acetaminophen (Percocet 5/325) 1 tab PRN Q4HRS PRN PO MILD PAIN 1-3; Start 12/08/21 at 16:00 Oxycodone/ Acetaminophen (Percocet 5/325) 2 tab PRN Q4HRS PRN PO MODERATE PAIN, SEVERE PAIN Last administered on 12/12/21at 07:19; Start 12/08/21 at 16:00 Sodium Chloride 1,000 ml @ 75 mls/hr [id number] IV Last administered on 12/12/21at 08:49; Start 12/08/21 at 16:00 Nicotine (Nicoderm Cq 14mg) 1 patch DAILY TD Last administered on 12/12/21at 08:24; Start 12/08/21 at 17:00 Piperacillin Sod/ Tazobactam Sod (Zosyn Per Pharmacy) 1 each PRN DAILY PRN MC SEE COMMENTS; Start 12/08/21 at 17:30 Sodium Chloride 1,000 ml @ 75 mls/hr [id number] IV ; Start 12/08/21 at 17:30; Status UNV Piperacillin Sod/ Tazobactam Sod 3.375 gm/Sodium Chloride 50 ml @ 100 mls/hr Q6HRS IV Last administered on 12/12/21at 06:00; Start 12/08/21 at 18:00 Aspirin (Aspirin Chewable) 81 mg DAILYWBKFT PO Last administered on 12/12/21at 08:24; Start 12/09/21 at 10:30 Atorvastatin Calcium (Lipitor) 40 mg QHS PO Last administered on 12/11/21at 20:12; Start 12/09/21 at 21:00 Heparin Sodium (Porcine) (Heparin Sodium) 5,000 unit Q8HRS SQ Last administered on 12/12/21at 06:05; Start 12/09/21 at 22:00 Lactobacillus Rhamnosus (Culturelle) 1 cap BID PO Last administered on 12/12/21at 08:24; Start 12/10/21 at 21:00 Morphine Sulfate (Morphine Sulfate) 2 mg PRN Q2HR PRN IVP PAIN Last administered on 12/12/21at 08:54; Start 12/10/21 at 16:00 Cefazolin Sodium 1 gm/Sodium Chloride 250 ml @ 250 mls/hr 1X ONCE IRR Last administered on 12/11/21at 08:23; Start 12/11/21 at 08:00; Stop 12/11/21 at 08:59; Status DC Lidocaine HCl (Lidocaine Pf 2% Vial) 5 ml STK-MED ONCE .ROUTE ; Start 12/11/21 at 07:35; Stop 12/11/21 at 07:35; Status DC Lidocaine HCl (Lidocaine HCl 2% Abboject) 100 mg STK-MED ONCE .ROUTE ; Start 12/11/21 at 07:35; Stop 12/11/21 at 07:35; Status DC Midazolam HCl (Versed) 2 mg STK-MED ONCE .ROUTE ; Start 12/11/21 at 07:48; Stop 12/11/21 at 07:48; Status DC Fentanyl Citrate (Fentanyl 2ml Vial) 100 mcg STK-MED ONCE .ROUTE ; Start 12/11/21 at 07:48; Stop 12/11/21 at 07:48; Status DC Lidocaine HCl (Lidocaine HCl 2% Abboject) 100 mg STK-MED ONCE .ROUTE ; Start 12/11/21 at 07:49; Stop 12/11/21 at 07:49; Status DC Fentanyl Citrate (Fentanyl 2ml Vial) 25 mcg PRN Q5MIN PRN IVP MILD PAIN 1-3; Start 12/11/21 at 08:15; Stop 12/11/21 at 20:00; Status DC Fentanyl Citrate (Fentanyl 2ml Vial) 50 mcg PRN Q5MIN PRN IVP MODERATE PAIN 4-6 Last administered on 12/11/21at 09:33; Start 12/11/21 at 08:15; Stop 12/11/21 at 20:00; Status DC Morphine Sulfate (Morphine Sulfate) 1 mg PRN Q10MIN PRN IVP SEVERE PAIN 7-10; Start 12/11/21 at 08:15; Stop 12/11/21 at 20:00; Status DC Ringer's Solution 1,000 ml @ 30 mls/hr Q24H IV Last administered on 12/11/21at 08:12; Start 12/11/21 at 08:15; Stop 12/11/21 at 20:14; Status DC Hydromorphone HCl (Dilaudid) 0.5 mg PRN Q10MIN PRN IVP SEVERE PAIN 7-10, 2nd CHOICE Last administered on 12/11/21at 10:17; Start 12/11/21 at 08:15; Stop 12/11/21 at 20:00; Status DC Prochlorperazine Edisylate (Compazine) 5 mg PACU PRN PRN IVP NAUSEA, MRX1 Last administered on 12/11/21at 09:27; Start 12/11/21 at 08:15; Stop 12/11/21 at 20:00; Status DC Midazolam HCl (Versed) 2 mg 1X ONCE IV Last administered on 12/11/21at 07:55; Start 12/11/21 at 08:15; Stop 12/11/21 at 08:16; Status DC Lidocaine HCl (Lidocaine 1% 20ml Vial) 20 ml STK-MED ONCE .ROUTE Last administered on 12/11/21at 08:43; Start 12/11/21 at 08:31; Stop 12/11/21 at 08:32; Status DC Fentanyl Citrate (Fentanyl 2ml Vial) 100 mcg STK-MED ONCE .ROUTE ; Start 12/11/21 at 09:25; Stop 12/11/21 at 09:25; Status DC Prochlorperazine Edisylate (Compazine) 10 mg STK-MED ONCE .ROUTE ; Start 12/11/21 at 09:25; Stop 12/11/21 at 09:25; Status DC Sodium Chloride (Normal Saline Flush) 3 ml QSHIFT PRN IV AFTER MEDS AND BLOOD DRAWS; Start 12/11/21 at 09:30 Naloxone HCl (Narcan) 0.4 mg PRN Q2MIN PRN IV SEE INSTRUCTIONS; Start 12/11/21 at 09:30 Hydromorphone HCl (Dilaudid) 2 mg STK-MED ONCE .ROUTE ; Start 12/11/21 at 09:30; Stop 12/11/21 at 09:31; Status DC Fentanyl Citrate (Fentanyl 2ml Vial) 25 mcg PRN Q5MIN PRN IVP MILD PAIN 1-3; Start 12/11/21 at 10:45; Stop 12/12/21 at 10:44 Fentanyl Citrate (Fentanyl 2ml Vial) 50 mcg PRN Q5MIN PRN IVP MODERATE PAIN 4- 6; Start 12/11/21 at 10:45; Stop 12/12/21 at 10:44 Morphine Sulfate (Morphine Sulfate) 1 mg PRN Q10MIN PRN IVP SEVERE PAIN 7-10; Start 12/11/21 at 10:45; Stop 12/12/21 at 10:44 Ringer's Solution 1,000 ml @ 30 mls/hr Q24H IV ; Start 12/11/21 at 10:45; Stop 12/11/21 at 22:44; Status DC Hydromorphone HCl (Dilaudid) 0.5 mg PRN Q10MIN PRN IVP SEVERE PAIN 7-10, 2nd CHOICE; Start 12/11/21 at 10:45; Stop 12/12/21 at 10:44 Prochlorperazine Edisylate (Compazine) 5 mg PACU PRN PRN IVP NAUSEA, MRX1; Start 12/11/21 at 10:45; Stop 12/12/21 at 10:44 Multivitamins (Thera M Plus) 1 tab DAILY PO Last administered on 12/12/21at 08:24; Start 12/11/21 at 17:00 Active Scripts Active One Daily Multivitamin Tablet (Multivitamin With Folic Acid) 400 Mcg Tablet 1 Tab PO DAILY 30 Days Lidocaine PATCH (Lidocaine) 1 Each Adh..patch 1 Each TP DAILY 5 Days REMOVE AFTER 12 HOURS Vitals/I & O Vital Sign - Last 24 Hours 12/11/21 12/11/21 12/11/21 12/11/21 10:45 11:15 11:16 11:30 Temp 97.8 97.8 Pulse 81 71 91 Resp 20 20 B/P (MAP) 146/95 (112) 133/89 (104) 142/82 (102) Pulse Ox 98 98 O2 Delivery Room Air Room Air 12/11/21 12/11/21 12/11/21 12/11/21 11:45 11:50 12:00 12:30 Pulse 84 84 93 Resp 20 B/P (MAP) 122/74 (90) 121/76 (91) 122/66 (84) Pulse Ox 98 O2 Delivery Room Air 12/11/21 12/11/21 12/11/21 12/11/21 13:00 14:00 14:19 14:53 Pulse 69 86 Resp 2 19 B/P (MAP) 119/68 (85) 136/78 (97) Pulse Ox 93 93 O2 Delivery Room Air Room Air 12/11/21 12/11/21 12/11/21 12/11/21 15:00 17:14 19:00 20:00 Temp 98.3 98.3 Pulse 82 83 Resp 20 18 B/P (MAP) 142/75 (97) 134/85 (101) Pulse Ox 94 97 O2 Delivery Room Air Room Air Room Air 12/11/21 12/11/21 12/11/21 12/11/21 20:10 20:40 21:51 23:00 Temp 98.0 98.0 Pulse 72 Resp 20 20 20 18 B/P (MAP) 137/92 (107) Pulse Ox 92 O2 Delivery Room Air Room Air Room Air Room Air 12/12/21 12/12/21 12/12/21 12/12/21 00:19 00:50 02:51 03:00 Temp 97.6 97.6 Pulse 75 Resp 20 24 24 20 B/P (MAP) 132/84 (100) Pulse Ox 98 O2 Delivery Room Air Room Air Room Air Room Air 12/12/21 12/12/21 12/12/21 12/12/21 03:25 05:52 06:25 07:15 Temp 97.9 97.9 Pulse 68 Resp 20 20 22 20 B/P (MAP) 132/84 (100) Pulse Ox 97 O2 Delivery Room Air Room Air Room Air Room Air 12/12/21 12/12/21 12/12/21 12/12/21 07:19 08:00 08:26 08:54 Resp 20 Pulse Ox 97 97 O2 Delivery Room Air Room Air Room Air Room Air O2 Flow Rate 10.0 10.0 12/12/21 09:26 Pulse Ox 97 O2 Delivery Room Air O2 Flow Rate 10.0 Intake and Output 12/11/21 12/11/21 12/12/21 15:00 23:00 07:00 Intake Total 1240 ml 200 ml Output Total 1750 ml 1400 ml 1 ml Balance -510 ml -1200 ml -1 ml Justifications for Admission Other Justification GURINDER PATHAK MD Dec 12, 2021 10:42
[2021-12-12 11:05] VITALS: BP 117/76
[2021-12-12 14:53] VITALS: BP 143/85
--- NOTE | 2021-12-12 17:43 | PDOC ---
[employer] PROGRESS NOTE Date of Service DOS: DATE: 12/12/21 TIME: 17:42 Chief Complaint Chief Complaint Severe peripheral vascular disease with gangrenous toes. The patient has been admitted. We will consult vascular surgeon. Empiric IV antibiotics, home meds. Deep venous thrombosis prophylaxis. Full code. P.r.n. Percocet, IV fluids. History of Present Illness History of Present Illness 12/09 Evaluate examined at bedside. Pain controlled. Interested in plan. Continue antibiotics. Vascular surgery consulted. Possible surgery this coming week 12/10 Evaluated examined at bedside. Patient resting in bed. Planning for surgical intervention tomorrow. Please send cultures if possible. We will see patient again in the morning before surgery. N.p.o. midnight 12/11 Patient evaluated examined at bedside H before and after surgery. After surgery she was bit lethargic. Pain was well controlled. Continue current plan. Vascular following. Continue antibiotics. discussed with bedside RN. 12/12 Evaluated examined at bedside. He is doing well says pain controlled. No major complaints to me. PT OT ordered needs half shoe for his operative foot. Can discontinue antibiotics today. Discussed with bedside RN. Vitals/I&O Vitals/I&O: Vital Signs Date Time Temp Pulse Resp B/P (MAP) Pulse Ox O2 Delivery O2 Flow Rate FiO2 12/12/21 15:18 98 Room Air 10.0 12/12/21 14:53 98.1 61 18 143/85 (104) 98.1 I & O 12/11/21 12/11/21 12/12/21 15:00 23:00 07:00 Intake Total 1240 ml 200 ml Output Total 1750 ml 1400 ml 1 ml Balance -510 ml -1200 ml -1 ml Physical Exam General: Alert, Oriented X3, No acute distress Heart: Regular rate, Other (2+ palpable dp pulse on right.) Lungs: Clear Abdomen: Normal bowel sounds, Soft, No tenderness, No masses Extremities: Other (dry gangrene to right 3-5th digits with gangrene to the plantar aspect of the right great toe and lateral aspect of the right 2nd toe, malodorous, no drainage, no surrounding erythema, no fluctuance, palpable femoral/popliteal/DP/PT pulses b/l) Skin: Other (Right foot amputation site c/d/i with sutures in place without hematoma. Small superficial ulceration right second toe. No other visualized wounds on right foot.) Labs Labs: Laboratory Tests Test 12/12/21 05:27 White Blood Count 5.5 x10^3/uL (4.0-11.0) Red Blood Count 3.75 x10^6/uL (4.30-5.70) Hemoglobin 12.0 g/dL (13.0-17.5) Hematocrit 36.0 % (39.0-53.0) Mean Corpuscular Volume 96 fL (79-100) Mean Corpuscular Hemoglobin 32 pg (25-35) Mean Corpuscular Hemoglobin Concent 33 g/dL (31-37) Red Cell Distribution Width 14.2 % (11.5-14.5) Platelet Count 287 x10^3/uL (140-400) Neutrophils (%) (Auto) 63 % (31-73) Lymphocytes (%) (Auto) 25 % (24-48) Monocytes (%) (Auto) 10 % (0-9) Eosinophils (%) (Auto) 2 % (0-3) Basophils (%) (Auto) 0 % (0-3) Neutrophils # (Auto) 3.4 x10^3/uL (1.8-7.7) Lymphocytes # (Auto) 1.4 x10^3/uL (1.0-4.8) Monocytes # (Auto) 0.5 x10^3/uL (0.0-1.1) Eosinophils # (Auto) 0.1 x10^3/uL (0.0-0.7) Basophils # (Auto) 0.0 x10^3/uL (0.0-0.2) Comment Review of Relevant I have reviewed the following items brandi (where applicable) has been applied. Justifications for Admission Other Justification JALYN LAU MD Dec 12, 2021 17:43
[2021-12-12 19:20] VITALS: BP 143/82
[2021-12-12] MEDS: ATORVASTATIN CALCIUM 40 MG TABLET. PO SCH (22:01)
[2021-12-12 23:10] VITALS: BP 138/78
[2021-12-13] MEDS: oxyCODONE/APAP 5/325 1 TAB TABLET PO PRN ×3 (01:59→12:28)
[2021-12-13 02:28] VITALS: BP 129/74
[2021-12-13] MEDS: IV NORMAL SALINE 1000ML BAG 1,000 ML IV SCH (02:40)
[2021-12-13 05:01] LABS: BASO # 0.1 x10^3/uL (0.0-0.2); BASO % 1 % (0-3); EOS # 0.2 x10^3/uL (0.0-0.7); EOS % 4 % (0-3); HEMATOCRIT 38.1 % (39.0-53.0); HEMOGLOBIN 12.5 g/dL (13.0-17.5); LYMPH # 1.5 x10^3/uL (1.0-4.8); LYMPH % 26 % (24-48); MEAN CORPUSCULAR HEMOGLOBIN 31 pg (25-35); MEAN CORPUSCULAR HGB CONC 33 g/dL (31-37); MEAN CORPUSCULAR VOLUME 96 fL (79-100); MONO # 0.6 x10^3/uL (0.0-1.1); MONO % 10 % (0-9); NEUT # 3.4 x10^3/uL (1.8-7.7); NEUT % 60 % (31-73); PLATELET COUNT 285 x10^3/uL (140-400); RED BLOOD COUNT 3.98 x10^6/uL (4.30-5.70); RED CELL DISTRIBUTION WIDTH 14.7 % (11.5-14.5); WHITE BLOOD COUNT 5.7 x10^3/uL (4.0-11.0)
[2021-12-13] MEDS: HEPARIN for SUB-Q USE 5,000 UNIT/ML VIAL. SQ SCH (06:00)
[2021-12-13 07:15] VITALS: BP 121/71
[2021-12-13] MEDS: ASPIRIN CHEWABLE 81 MG TABLET. PO SCH (08:02)
[2021-12-13] MEDS: LACTOBACILLUS RHAMNOSUS GG 1 CAPSULE. PO SCH (08:02)
[2021-12-13] MEDS: MULTIVITAMIN with MINERAL TABLET. PO SCH (08:02)
[2021-12-13] MEDS: NICOTINE 14MG PATCH. TD SCH (09:00)
--- NOTE | 2021-12-13 09:06 | NUR ---
Wound Care Wound care follow up for post op assessment. Pt has had 3-5 toe amputation that was surgically closed, so no open wounds noted. Pt also has steri-strips on plantar great toe. Cleansed sutures with ChloraPrep and covered with Xeroform and gauze. Recommend daily dressing changes and HHRN to monitor for infection as great toe is somewhat reddened and swollen and foot is mildly swollen. WC will sign off at this time. Please reconsult if new wounds develop or surgical incision dehisces.
[2021-12-13 11:00] VITALS: BP 135/80
--- NOTE | 2021-12-13 11:56 | PDOC ---
Provider Note Date of Service: DATE: 12/13/21 TIME: 11:53 Provider Note Provider Note Vascular S: Patient is without complaints, would like to go home. Successfully ambulating with forefoot off-loading shoe. The patient is requesting for HH to assist with dressing changes. O: Awake and alert right foot dressing dry and intact, report that incision healing nicely and small open ulceration on second toe clean. A/P: POD 2 right 3-5th toe amps and debridement of second toe ulceration on right Recommend half shoe for forefoot offloading Bandaid with antibiotic ointment to second toe ulceration Dry dressing to cover suture on right foot Ok to discharge when medically stable follow up as scheduled with Dr. Garvin. Discussed postop instructions with the patient and his family, they express understanding. Justicifation of Admission Dx: Justifications for Admission: Justification of Admission Dx: ADAN Ramos APRN Dec 13, 2021 11:56
[2021-12-13] MEDS ORDERED: ATOR40TA59 PO (12:35)
[2021-12-13] MEDS ORDERED: ASPI-630 PO (12:35)
[2021-12-13] MEDS ORDERED: OXYC1TAB15 PO (12:35)
--- NOTE | 2021-12-13 12:39 | SNU/HH DC ---
DISCHARGE WITH HOME HEALTH DISCHARGE INFORMATION: Discharge Date: Dec 13, 2021 Condition on Discharge: Stable CODE STATUS: Code Status: Full HOME HEALTH: Face to Face: I certify this patient is under my care and that I, or a nurse practitioner or jacob leiva's medical assistant float working with me, had a face to face encounter that meets the physician face to face encounter requirements with this patient on []. RN For Eval/Treatment: Yes Physical Therapy For: Evalulation/Treatment Occupational Therapy For: Evaluation/Treatment Pt Meets Homebound Status: Poor coordination w/ amb., Extreme weakness w/ amb. POST DISCHARGE ORDERS: Activity Instructions for Disc: Activity as tolerated Weight Bearing Status after Di: As tolerated Bathing Instructions: Shower-keep dressing dry, No Tub Bath until see DIET AFTER DISCHARGE: ADA Wound/Incision Care: Keep wound/cast CDI, Change dressing, Other, see below Other wound/incision instructi: Change daily and as needed with xeroform and guaze. FOLLOW-UP: Follow Up With: Dr Garvin on January 01 at 1 pm at the [facility] TREATMENT/EQUIPMENT ORDERS: Adaptive Equipment Issued: Crutches CERTIFICATION STATEMENT: Certification Statement: Certification Statement: Based on the above finding, I certify that this patient is confined to the home and needs intermittent snf care, physical therapy and/or speech therapy, or continues to need occupational therapy.~ This patient is under my care, and I have initiated the establishment of the plan of care.~ This patient will be followed by myself or a community physician who will periodically review the plan of care. Home Meds Active Scripts Aspirin (ASPIRIN) 81 Mg Tab.chew, 81 MG PO DAILYWBKFT for cad for 60 Days, #60 TAB.CHEW Prov:JALYN LAU MD 12/13/21 Atorvastatin Calcium (ATORVASTATIN CALCIUM) 40 Mg Tablet, 40 MG PO QHS for hpld for 60 Days, #60 TAB Prov:JALYN LAU MD 12/13/21 Multivitamin With Folic Acid (ONE DAILY MULTIVITAMIN TABLET) 400 Mcg Tablet, 1 TAB PO DAILY for 30 Days, #30 TAB 0 Refills Prov:COLIN CALDERON DO 11/02/21 Lidocaine (Lidocaine PATCH ) 1 Each Adh..patch, 1 EACH TP DAILY for FOR LOCAL PAIN for 5 Days, #5 PATCH REMOVE AFTER 12 HOURS Prov:COLIN CALDERON DO 11/02/21 JALYN LAU MD Dec 13, 2021 12:39
--- NOTE | 2021-12-13 13:32 | NUR ---
SW following. Discussed with RN, discharge order for home with home health. [facility] RN notified of referral and meeting with pt and pt's family. Addendum: 12/13/21 at 1410 by ALLI BLUE Pt accepted with [facility].
--- NOTE | 2021-12-13 14:10 | NUR ---
Patient left around 1400 with his family. Discharge education completed by WC, vascular team, therapy, and this nurse prior to dismissal. Dressing CDI. to right foot with shoe in place. Family education completed. NO IV access on discharge. No concerns noted at discharge.
--- NOTE | 2021-12-13 17:07 | PATHOLOGY ---
[facility] Accession Number: [id number] . 01 Material submitted: . toe - RIGHT THIRD, FOURTH, FIFTH TOES. Modifiers: right, third, fourth . 01 Clinical history: . RIGHT GANGRENOUS FOREFOOT RIGHT 3, 4, 5 TOE AMPUTATION DEBRIDEMENT, POSS AMP 1, 2 TOES . 02 Diagnosis: Toes (3), right third, fourth, and fifth toe amputations: - Focal gangrenous necrosis and acute cellulitis of toes with focal acute osteomyelitis. (JPM:satish; 12/13/2021) S 12/13/2021 1607 Local . 02 Electronically signed: . Edgar Campos MD, Pathologist NPI- [id number] . 01 Gross description: . The specimen is received in formalin, labeled "Jeramie Ray, right third, fourth, fifth toes". Received are three amputated digits ranging in size from 3.3 x 2.8 x 2.0 to 3.6 x 2.1 x 2.0 cm in greatest dimensions. The bone margins are jagged in appearance. The bone and soft tissue margins are inked black, blue, and green, respectively. The epidermal surfaces are light brown to dusky brown-black and sloughing in appearance. Licensed P[facility] Nurse [facility] Nurse longitudinal cross-sections through each bone margin are submitted in cassettes A1 through A3, following decalcification. Gross photographs are taken. (CAA; 12/12/2021) QA/QA 12/12/2021 0936 Local . 02 Pathologist provided ICD-10: I96, M86.171, L03.031 . 02 CPT . 533037, [id number] Specimen Comment: A courtesy copy of this report has been sent to [phone], [phone] Specimen Comment: [id number] Specimen Comment: Report sent to / DR COYLE Performed at: [address] [id number] MD Jose Champion MD Phone: [phone] [facility] [address], [place] [id number] MD Edgar Campos MD Phone: [phone]
[2021-12-14] MEDS ORDERED: HYDR-3070 PO (15:50)
[2021-12-15] MEDS ORDERED: HYDR-2763 PO (10:24)
--- NOTE | 2021-12-15 12:21 | PDOC3 ---
[facility]-Discharge Summary Date of Admission: Date of Admission: Dec 08, 2021 Date of Discharge: Date of Discharge: Dec 13, 2021 Admission Diagnosis: Problems: (1) Gangrene Consults: Consults: Vascular Surgery Hospital Course: Hospital Course: Chief Complaint Severe peripheral vascular disease with gangrenous toes. The patient has been admitted. We will consult vascular surgeon. Empiric IV antibiotics, home meds. Deep venous thrombosis prophylaxis. Full code. P.r.n. Percocet, IV fluids. History of Present Illness History of Present Illness 12/09 Evaluate examined at bedside. Pain controlled. Interested in plan. Continue antibiotics. Vascular surgery consulted. Possible surgery this coming week 12/10 Evaluated examined at bedside. Patient resting in bed. Planning for surgical intervention tomorrow. Please send cultures if possible. We will see patient again in the morning before surgery. N.p.o. midnight 12/11 Patient evaluated examined at bedside H before and after surgery. After surgery she was bit lethargic. Pain was well controlled. Continue current plan. Vascular following. Continue antibiotics. discussed with bedside RN. 12/12 Evaluated examined at bedside. He is doing well says pain controlled. No major complaints to me. PT OT ordered needs half shoe for his operative foot. Can discontinue antibiotics today. Discussed with bedside RN. 12/13 Evaluate examined at bedside. Did well with therapy. Can discharge home with home health today. Greater than 30 minutes spent on discharge. Outpatient follow-up with vascular Disposition: Disposition/Orders: D/C to Home w/ HH Activity: Activity: Resume previous activity Diet: Diet: Cardiac Medications: Home Meds Active Scripts Hydrocodone/Acetaminophen (Hydrocodone-Acetamin 7.5-325) 1 Each Tablet, 1 EACH PO QIDPRN PRN for PAIN for 10 Days, #20 TAB Prov:CASTLE,NIAL K III DO 12/15/21 Hydrocodone Bit/Acetaminophen (HYDROCODONE-APAP 7.5-300) 1 Each Tablet, 1 TAB PO PRN TID PRN for PAIN MDD 3 Tablet(s) for 14 Days, #20 TAB 0 Refills Prov:CASTLE,NIAL K III DO 12/14/21 Aspirin (ASPIRIN) 81 Mg Tab.chew, 81 MG PO DAILYWBKFT for cad for 60 Days, #60 TAB.CHEW Prov:JALYN LAU MD 12/13/21 Atorvastatin Calcium (ATORVASTATIN CALCIUM) 40 Mg Tablet, 40 MG PO QHS for hpld for 60 Days, #60 TAB Prov:JALYN LAU MD 12/13/21 Multivitamin With Folic Acid (ONE DAILY MULTIVITAMIN TABLET) 400 Mcg Tablet, 1 TAB PO DAILY for 30 Days, #30 TAB 0 Refills Prov:COLIN CALDERON DO 11/02/21 Lidocaine (Lidocaine PATCH ) 1 Each Adh..patch, 1 EACH TP DAILY for FOR LOCAL PAIN for 5 Days, #5 PATCH REMOVE AFTER 12 HOURS Prov:KVNGCOLIN Lionel ROA 11/02/21 Scheduled Aspirin (Aspirin), 81 MG PO DAILYWBKFT Atorvastatin Calcium (Atorvastatin Calcium), 40 MG PO QHS Lidocaine (Lidocaine PATCH ), 1 EACH TP DAILY Multivitamin With Folic Acid (One Daily Multivitamin Tablet), 1 TAB PO DAILY Scheduled PRN Hydrocodone Bit/Acetaminophen (Hydrocodone-Apap 7.5-300), 1 TAB PO PRN TID PRN for PAIN Hydrocodone/Acetaminophen (Hydrocodone-Acetamin 7.5-325), 1 EACH PO QIDPRN PRN for PAIN Justicifation of Admission Dx: Justifications for Admission: Justification of Admission Dx: No JALYN LAU MD Dec 15, 2021 12:21
== END 2021-12-13 14:00 | disposition home health service (06) | DRG 257 ==
LOC: 4 NORTH 13:32
PROVIDERS: ADMIT Internal Medicine; ATTEND Internal Medicine
PROC: 0Y6X0Z1 Detachment at Right 5th Toe, High, Open Approach (ICD-10-PCS; 2021-12-11)
PROC: 0Y6V0Z1 Detachment at Right 4th Toe, High, Open Approach (ICD-10-PCS; 2021-12-11)
PROC: 0Y6T0Z1 Detachment at Right 3rd Toe, High, Open Approach (ICD-10-PCS; principal; 2021-12-11 08:00)
DX: I73.89 Other specified peripheral vascular diseases (principal); E78.00 Pure hypercholesterolemia, unspecified; F17.200 Nicotine dependence, unspecified, uncomplicated; L97.509 Non-pressure chronic ulcer of other part of unspecified foot with unspecified severity; Z83.3 Family history of diabetes mellitus; Z20.822 Contact with and (suspected) exposure to COVID-19
CPT/HCPCS: 36415; 73620; 80048; 85025; 87426; 88305; 88311; 93926; A4209; A4364; A4452; A4930; A6402; A6443; A6449; J0690; J0780; J1170; J1644; J2250; J2270; J2543; J3010; J3490; J7030; J7050; J7120; 97110-GP; 97116-GP; G0378